=== PATIENT | male | born 1960 | race Caucasian/White ===

== ENCOUNTER → 2022-11-05 | Outpatient (CLI) | payer OTHER | END | disposition short-term general hospital (02) | LOC: EMS 08:48 | DX: R56.9 Unspecified convulsions (principal) | CPT/HCPCS: A0425; A0429 ==

== ENCOUNTER 2024-03-21 16:15 | Outpatient (CLI) | payer OTHER | END 2024-03-21 23:59 | disposition left against medical advice (07) | LOC: EMS 16:15 | DX: R25.2 Cramp and spasm (principal) ==